=== PATIENT | female | born 1955 | race Caucasian/White ===

== ENCOUNTER 2018-06-28 13:57 | Emergency (ER) | payer MEDICARE, OTHER ==
[2018-06-28] MEDS: IBUPROFEN 600 MG TAB PO (14:36)
[2018-06-28] MEDS: HYDROCODONE/APAP (5/325) TAB PO (14:36)
== END 2018-06-28 16:44 | disposition home or self-care (01) ==
LOC: FTE 13:57
DX: S93.402A Sprain of unspecified ligament of left ankle, initial encounter (principal); S80.01XA Contusion of right knee, initial encounter; S50.01XA Contusion of right elbow, initial encounter; W01.0XXA Fall on same level from slipping, tripping and stumbling without subsequent striking against object, initial encounter; Y92.9 Unspecified place or not applicable
CPT/HCPCS: 73080; 73080-RT; 73562; 73610; 99284-25